=== PATIENT | male | born 1930 | race Caucasian/White ===

== ENCOUNTER 2017-08-01 15:35 | Inpatient (IN) ==
--- NOTE | 2017-08-01 15:44 | Emergency Department Note ---
Disposition Clinical Impression: Weakness, Acute kidney injury Transient cerebral ischemia Qualifiers: Transient cerebral ischemia type: unspecified Qualified Code(s): G45.9 - Transient cerebral ischemic attack, unspecified Altered mental status Qualifiers: Altered mental status type: transient alteration of awareness Qualified Code(s) : R40.4 - Transient alteration of awareness Hypertension Qualifiers: Hypertension type: unspecified Qualified Code(s): I10 - Essential (primary) hypertension Diabetes mellitus Qualifiers: Diabetes mellitus type: type 2 Diabetes mellitus complication status: with unspecified complications Diabetes mellitus care home insulin use: unspecified predatory animal exterminator insulin use status Qualified Code(s): E11.8 - Type 2 diabetes mellitus with unspecified complications Disposition: Admitted As Inpatient Condition: Undetermined Forms: ED Satisfaction Letter Time of Disposition: 16:33 Neuro HPI - General Chief Complaint: ED Neuro Symptoms/Deficit Stated Complaint: poss stroke Time Seen by Provider: 08/01/17 15:41 Source: patient, EMS Mode of arrival: EMS Limitations: altered mental status Nursing Notes Reviewed: Yes Vital Signs Reviewed: Yes - History of Present Illness HPI Narrative: 86-year-old male with apparent history of CVA arrives to [facility] emergency department with a last known well of roughly 1600 where he was at [facility] with family and everybody noted some slurring of his words, left-sided facial droop as well as some confusion. Apparently the patient went to the [facility] and he remained oriented to person only answer his words with left facial droop. The patient has no other symptoms associated with his complaints other than slurred words, left-sided facial droop, and mild aphasia. The patient denies any chest pain, difficulty breathing. He states that above his left eye feels a little numbness. Patient states he has never felt like this in the past. Records that were sent from the [facility] did not include medical history or medication history. The patient is a poor historian. Onset of Symptoms Date: 08/01/17 Onset of Symptoms Time: 16:00 Symptom Onset Unknown: No Timing confirmed by: family member Location: speech, left face, dysarthria History of same: No Severity: mild Symptoms Improving: Yes Improves with: time Worsens with: none Context: sudden onset On Anticoagulants: No Associated symptoms: Reports: confusion Treatments Prior to Arrival: none - Related Data Home Medications: Home Medications Medication Instructions Recorded Confirmed Albuterol Sulfate [Proair Hfa] 2 puff IH Q4H PRN 08/01/17 08/01/17 Budesonide/Formoterol 160/4.5 2 puff IH BIDR 08/01/17 08/01/17 [Symbicort 160/4.5] Calcium Carbonate/Vitamin D3 1 tab PO BID 08/01/17 08/01/17 [Calcium 250+D Tablet] Cholecalciferol (D-3) [Vitamin D] 1,000 unit PO DAILY 08/01/17 08/01/17 Clopidogrel [Plavix] 75 mg PO DAILY 08/01/17 08/01/17 Docusate Sodium [Dok] 100 mg PO BID 08/01/17 08/01/17 Furosemide [Lasix] 20 mg PO DAILY 08/01/17 08/01/17 Insulin ASPART [NovoLOG] 20 unit SQ BID 08/01/17 08/01/17 Insulin Glargine [Lantus] 68 unit SQ QPM 08/01/17 08/01/17 Isosorbide MONOnitrate (24 HR) 60 mg PO BID 08/01/17 08/01/17 [Imdur] Oxybutynin Chloride [Ditropan Xl] 10 mg PO HS 08/01/17 08/01/17 Simvastatin [Zocor] 80 mg PO QPM 08/01/17 08/01/17 Tiotropium [Spiriva] 1 puff IH DAILY 08/01/17 08/01/17 All systems ED: reviewed and negative except as stated. Constitutional: Denies: fever, chills, weakness ENT ED: Denies: congestion Cardiovascular: Denies: chest pain Respiratory: Denies: dyspnea Gastrointestinal: Denies: abdominal pain Genitourinary: Denies: urgency, dysuria Musculoskeletal: Denies: back pain, neck pain Integumentary: Denies: rash Neurological: Reports: headache, confusion. Denies: weakness, numbness, paresthesias Past Medical History - Past Medical History Attestation: Yes The following information was validated with the patient. Source: patient Medical history: Reports: coronary artery disease, CVA (according to records in 2005), diabetes, hyperlipidemia, hypertension Surgical history: Reports: non-contributory - Social History Smoking Status: Unknown if ever smoked Alcohol use: Reports: unknown Drug use: Reports: unknown Physical Exam - General Limitations: altered mental status General appearance: alert, in no apparent distress - Head Head exam: atraumatic, normocephalic, normal inspection - Eye Eye exam: Present: normal appearance, PERRL, EOMI - ENT ENT exam: normal exam, normal oropharynx, mucous membranes moist - Neck Neck exam: Present: normal inspection, full ROM, trachea midline - Chest Chest inspection: Present: normal inspection, symmetric chest wall rise - Respiratory Respiratory exam: Present: normal lung sounds bilaterally - Cardiovascular Cardiovascular exam: Present: regular rate, normal rhythm, normal heart sounds - Abdominal Exam Abdominal exam: Present: soft, Non-Tender. Absent: tenderness, distention, guarding, rebound, rigidity - Extremities Exam Extremities exam: Present: normal inspection, full ROM. Absent: tenderness, pedal edema - Neurological Exam Neurological exam: Present: alert - Expanded Neurological Exam Patient oriented to: Present: person Speech: Present: expressive aphasia Cranial nerves: EOM function (II, III, IV, ): Normal, facial sensation (V): Normal, facial palsy (VII): Abnormal Left Motor strength - LUE: 4/5 Motor strength - RUE: 4/5 Motor strength - LLE: 4/5 Motor strength - RLE: 4/5 Sensory exam upper extremity: light touch: Normal Sensory exam lower extremity: light touch: Normal Coma Scale Eye Opening: Spontaneous Coma Scale Motor Response: Obeys Commands Coma Scale Verbal Response: Confused Coma Scale Total: 14 Course - Consultations Consultation #1: We spoke to the [facility] neurologists, Dr. Coburn, who agreed that the patient did not meet tPA criteria. In addition it was noted the patient has an NIH of 1 for his dysarthria. The patient was recommended to be admitted for further workup and care. No further recommendations at this time. Time: 16:12 Vital Signs Temperature 98.7 F 08/01/17 15:37 Pulse Rate 69 08/01/17 15:37 Respiratory Rate 16 08/01/17 15:37 Blood Pressure 126/64 08/01/17 15:37 O2 Sat by Pulse Oximetry 94 08/01/17 15:37 Temperature 98.7 F 08/01/17 15:37 Pulse Rate 68 08/01/17 16:31 Respiratory Rate 20 08/01/17 16:31 Blood Pressure 154/75 08/01/17 16:31 O2 Sat by Pulse Oximetry 96 08/01/17 16:31 Oxygen Delivery Oxygen Delivery Nasal Cannula Neuro Symptoms/Deficit - MDM Narrative Medical decision making narrative: The patient will be admitted to the hospitalist with concern for TIA as the patient has had a improvement as his symptoms. [facility] neurology recommended MRI as well as carotid Dopplers and continue his aspirin and Plavix. Lab work is currently pending. No further recommendations at this time. Lab work demonstrates what appears to be a K I given the patient does not have past history of CTD listed on his information from the [facility]. Patient will be given IV fluids at this time. Urinalysis pending. We will admit the patient to the hospitalist for TIA versus CVA. Patient made aware and agrees to plan. No further recommendations. The patient took his aspirin and Plavix today so we will not repeat readminister. Accepted by Dr. Gerard. - Medical Records Medical records reviewed: Yes I reviewed the patient's medical records. - Lab Data Lab results reviewed: Yes I reviewed the patient's lab results. Result diagrams: 08/01/17 15:50 08/01/17 15:50 Lab Results 08/01/17 08/01/17 08/01/17 Range/Units 15:38 15:50 15:50 WBC 8.2 (4.3-11.1) K/mcL RBC 4.45 (4.19-5.50) M/mcL Hgb 13.4 (12.9-16.9) g/dL Hct 40.5 (37.5-50.1) % MCV 91.0 (83.0-100.0) fL MCH 30.1 (28.0-33.3) pg MCHC 33.1 (31.6-35.5) g/dL RDW 13.5 (11.5-14.5) % Plt Count 191 (140-400) K/mcL MPV 9.2 L (9.4-12.4) fL Immature Gran % 0.4 (0-4) % Seg Neutrophils % 61.7 % Lymphocytes % 22.7 % Monocytes % 9.4 % Eosinophils % 5.4 % Basophils % 0.4 % Neutrophils # 5.0 (1.6-8.9) K/mcL Lymphocytes # 1.9 (0.6-4.6) K/mcL Monocytes # 0.8 (0.0-1.3) K/mcL Eosinophils # 0.4 (0.0-0.6) K/mcL Basophils # 0.0 (0.0-0.2) K/mcL PT 11.3 (9.4-12.1) Seconds INR 1.1 APTT 28.8 (26.0-36.0) Seconds Sodium (136-145) mEq/L Potassium (3.5-4.5) mEq/L Chloride (98-109) mEq/L Carbon Dioxide (19-29) mEq/L BUN (8-26) mg/dL Creatinine (0.72-1.25) mg/dL Est GFR ( Amer) (> 60) Est GFR (Non-Af Amer) (> 60) BUN/Creatinine Ratio (6-26) Glucose (70-99) mg/dL POC Glucose 87 (58-89) Calculated Osmolality (280-300) Calcium (8.6-10.8) mg/dL Troponin I (0-0.03) ng/mL 08/01/17 08/01/17 Range/Units 15:50 15:50 WBC (4.3-11.1) K/mcL RBC (4.19-5.50) M/mcL Hgb (12.9-16.9) g/dL Hct (37.5-50.1) % MCV (83.0-100.0) fL MCH (28.0-33.3) pg MCHC (31.6-35.5) g/dL RDW (11.5-14.5) % Plt Count (140-400) K/mcL MPV (9.4-12.4) fL Immature Gran % (0-4) % Seg Neutrophils % % Lymphocytes % % Monocytes % % Eosinophils % % Basophils % % Neutrophils # (1.6-8.9) K/mcL Lymphocytes # (0.6-4.6) K/mcL Monocytes # (0.0-1.3) K/mcL Eosinophils # (0.0-0.6) K/mcL Basophils # (0.0-0.2) K/mcL PT (9.4-12.1) Seconds INR APTT (26.0-36.0) Seconds Sodium 142 (136-145) mEq/L Potassium 4.3 (3.5-4.5) mEq/L Chloride 106 (98-109) mEq/L Carbon Dioxide 28 (19-29) mEq/L BUN 24 (8-26) mg/dL Creatinine 2.34 H (0.72-1.25) mg/dL Est GFR ( Amer) 32 L (> 60) Est GFR (Non-Af Amer) 27 L (> 60) BUN/Creatinine Ratio 10 (6-26) Glucose 86 (70-99) mg/dL POC Glucose (58-89) Calculated Osmolality 297 (280-300) Calcium 8.9 (8.6-10.8) mg/dL Troponin I 0.01 (0-0.03) ng/mL - Radiology Data Radiology results reviewed: Yes I reviewed the patient's radiology results. - EKG Data EKG attestation: Yes I reviewed and interpreted this EKG. EKG results narrative: Heart rate 68 bpm. LA interval 164 ms. QTC 411 ms. Normal sinus rhythm. No ST elevation or ST depression. PVCs noted. NIH Stroke Scale - Level of Consciousness LOC: Alert - LOC Questions LOC Questions: Answers both correctly - LOC Commands LOC Commands: Performs both correctly - Best Gaze Best Gaze: Normal - Visual Visual: No visual loss - Facial Palsy Facial Palsy: Minor asymmetry on smiling, flattened nasolabial fold - Motor Arms Motor Arm-Left: No drift for 10 seconds Motor Arm-Right: No drift for 10 seconds - Motor Legs Motor Leg-Left: No drift for 5 seconds Motor Leg-Right: No drift for 5 seconds - Limb Ataxia Limb Ataxia: Normal, No Ataxia - Sensory Sensory: Normal - Best Language Best Language: Mild to moderate aphasia. Examiner can identify picture from response - Dysarthria Dysarthria: Mild, slurs some words - Extinction and Inattention Extinction and Inattention: Normal - NIHSS Total Score NIHSS Total Score: 3 Attestation Statement - Attestation Attestation: I examined this patient and my medical decision-making was reviewed with the Resident Physician, Dr. Batista. I agree with the documented findings, disposition and treatment plan as described except to the extent set forth below. Patient is an 86-year-old elderly white male who presents to the emergency by EMS today with concern for strokelike symptoms. Patient was eating at [facility] with his family. Approximately 2:00 this afternoon started to have difficulty swallowing slurred speech confusion and unable to articulate clear words with left-sided facial droop. Family took him to the [facility] urgent care who immediately transferred him to our facility with concern for acute CVA. Patient arrives awake alert and oriented 4 but hard of hearing, complaining of just a mild generalized headache but no other complaints at this time. Patient with slight droop to the corner of the mouth on the left but otherwise significantly improved mental status, now conversant and no deficits in the extremities noted. We did call a stroke alert on arrival based on facial droop symptoms and expedited CT imaging. Patient had an Accu-Chek prior to being taken to CT which was showed a blood sugar of 87. EKG that was sent by the [facility] was normal sinus without acute ischemia. Labs were ordered on the patient and we had to request patient records to get an updated list of his medical history as well as his medications. Patient currently on aspirin and Plavix. Head CT was negative for acute intracerebral hemorrhage or acute cortical infarct. Stroke team from [facility] was on telemetry cardiac on patient's return from CT, following their examination they agree with our initial assessment and that patient is not a candidate for TPA secondary to significant improvement in symptoms. Recommended admission for further evaluation and management of TIA. Case was discussed with the hospitalist who accepted patient for admission. Patient's neurologic status at this time continues to improve.
[2017-08-01 16:00] LABS: Basophils % 0.4 %; Eosinophils # 0.4 K/mcL (0.0-0.6); Eosinophils % 5.4 %; Hematocrit 40.5 % (37.5-50.1); Hemoglobin 13.4 g/dL (12.9-16.9); Immature Granulocytes % 0.4 % (0-4); Lymphocytes # 1.9 K/mcL (0.6-4.6); Lymphocytes % 22.7 %; Mean Corpuscular HGB Conc 33.1 g/dL (31.6-35.5); Mean Corpuscular Hemoglobin 30.1 pg (28.0-33.3); Mean Platelet Volume 9.2 fL (9.4-12.4); Monocytes # 0.8 K/mcL (0.0-1.3); Monocytes % 9.4 %; Platelet Count 191 K/mcL (140-400); Red Blood Count 4.45 M/mcL (4.19-5.50); Red Cell Distribution Width 13.5 % (11.5-14.5); Segmented Neutrophils % 61.7 %
[2017-08-01 16:07] LABS: INR 1.1; Prothrombin Time 11.3 Seconds (9.4-12.1)
[2017-08-01 16:09] LABS: Activated Partial Thrombo Time 28.8 Seconds (26.0-36.0)
[2017-08-01 16:13] LABS: Calcium 8.9 mg/dL (8.6-10.8)
[2017-08-01 16:18] LABS: Potassium 4.3 mEq/L (3.5-4.5)
[2017-08-01 16:50] LABS: Bilirubin,Urine Small (Negative); Blood,Urine Negative (Negative); Clarity,Urine Clear (Clear); Color,Urine Dark Yellow (Yellow); Glucose,Urine (UA) Normal (Normal); Ketones,Urine Negative (Negative); Leukocyte Esterase,Urine Negative (Negative); Nitrite,Urine Negative (Negative); PH,Urine 5.5 pH Units (5.0-8.0); Protein,Urine 30 mg/dL (Neg-Trace); Specific Gravity,Urine 1.029 (1.010-1.025); Urobilinogen,Urine Normal (Normal)
[2017-08-01 16:53] LABS: Bacteria,Urine None Seen per hpf (None-Few); Squamous Epithelial Cell,Urine Many per lpf (None-Few)
--- NOTE | 2017-08-01 16:58 | Internal Med History&Physical ---
Date of Encounter: 08/01/17 Time of Encounter: 16:54 Assessment and Plan (1) Morbid obesity Status: Chronic chronic (2) Hyperlipidemia Status: Chronic chronic Qualifiers: Hyperlipidemia type: pure hypercholesterolemia Qualified Code(s): E78.00 - Pure hypercholesterolemia, unspecified; E78.0 - Pure hypercholesterolemia (3) Acute kidney injury Status: Acute not sure if acute no prior labs here will monitor and consult nephrology if worsens (4) Altered mental status Status: Acute due to tia/cva improving already Qualifiers: Altered mental status type: transient alteration of awareness Qualified Code(s): R40.4 - Transient alteration of awareness (5) Diabetes mellitus Status: Chronic place on sliding scale and resume home meds Qualifiers: Diabetes mellitus type: type 2 Diabetes mellitus complication status: with unspecified complications Diabetes mellitus prison insulin use: unspecified exterminator insulin use status Qualified Code(s): E11.8 - Type 2 diabetes mellitus with unspecified complications (6) Hypertension Status: Chronic well controlled Qualifiers: Hypertension type: essential hypertension Qualified Code(s): I10 - Essential (primary) hypertension (7) Transient cerebral ischemia Status: Acute acute tia/cva with left sided weakness and facial drrop and some speeech aphasia Qualifiers: Transient cerebral ischemia type: unspecified Qualified Code(s): G45.9 - Transient cerebral ischemic attack, unspecified Internal Medicine - H&P: HPI Chief complaint: left sided weakness and facial drrop Admitted From: Intrahospital Transfer Plans for Post Hospital Care: Home History of present illness: Mr. Joseph is a 86 year old male Patient with history of prior CVA, diabetes, COPD with Prior lobectomy, hypertension, high cholesterol, CAD, patient was with the family at [facility] and family noted left facial droop and left-sided weakness and confusion and some sluured speech and drooling he was then taken to [facility] where he was oriented only to person the patient was then transferred here for further evaluation CT of the head here was unremarkable. Patient has improved denies any chest pain ,is short of breath from chronic shortness of breath patient also has some abnormality of the creatinine is 2.3 with no known baseline patient being admitted for TIA CVA evaluation Past Med Surg Social Fam HX - Past Medical History Medical history: coronary artery disease, CVA (according to records in 2005), diabetes, hyperlipidemia, hypertension Psychiatric history: anxiety - Past Surgical History Surgical History: non-contributory - Social History Smoking Status: Unknown if ever smoked Smokeless Tobacco Status: No Alcohol use: unknown Drug use: unknown Internal Medicine - H&P: Meds Albuterol Sulfate [Proair Hfa] 2 puff IH Q4H PRN 08/01/17 [History] Budesonide/Formoterol 160/4.5 [Symbicort 160/4.5] 2 puff IH BIDR 08/01/17 [ History] Calcium Carbonate/Vitamin D3 [Calcium 250+D Tablet] 1 tab PO BID 08/01/17 [ History] Cholecalciferol (D-3) [Vitamin D] 1,000 unit PO DAILY 08/01/17 [History] Clopidogrel [Plavix] 75 mg PO DAILY 08/01/17 [History] Docusate Sodium [Dok] 100 mg PO BID 08/01/17 [History] Furosemide [Lasix] 20 mg PO DAILY 08/01/17 [History] Insulin ASPART [NovoLOG] 20 unit SQ BID 08/01/17 [History] Insulin Glargine [Lantus] 68 unit SQ QPM 08/01/17 [History] Isosorbide MONOnitrate (24 HR) [Imdur] 60 mg PO BID 08/01/17 [History] Oxybutynin Chloride [Ditropan Xl] 10 mg PO HS 08/01/17 [History] Simvastatin [Zocor] 80 mg PO QPM 08/01/17 [History] Tiotropium [Spiriva] 1 puff IH DAILY 08/01/17 [History] 3 Allergy/AdvReac Type Severity Reaction Status Date / Time No Known Allergies Allergy Verified 08/01/17 16:47 All Systems PM: A 10-system review of systems was performed and is negative for pertinent findings except as documented above in the HPI. - Constitutional Constitutional: no chills, no fever(s), no night sweats - EENT Eyes: no change in vision, no discharge, no pain, no photophobia Ears: no ear discharge, no ear pain, no tinnitus Nose, mouth and throat: no dysphagia, no nasal discharge, no neck pain, no sore throat - Cardiovascular Cardiovascular ROS IM: dyspnea, dyspnea on exertion - Respiratory Respiratory: dyspnea, no excessive phlegm production - Gastrointestinal Gastrointestinal: no abdominal pain, no diarrhea, no hematemesis, no hematochezia, no melena, no nausea, no vomiting - Musculoskeletal Musculoskeletal ROS IM: no numbness, no tingling - Integumentary Integumentary IM: no rash, no unusual bruising - Neurological Neurological ROS: no confusion, no convulsions, no focal weakness, no numbness, no tingling, no tremor(s) - Constitutional Vitals: Temp Pulse Resp BP Pulse Ox 98.7 F 68 20 154/75 96 08/01/17 15:37 08/01/17 16:31 08/01/17 16:31 08/01/17 16:31 08/01/17 16:31 General appearance: Present: mild distress, morbidly obese - Eye Eye exam: Present: PERRL, conjuntiva pink, sclera anicteric Pupils: Present: PERRL - Respiratory Respiratory exam: Present: decreased breath sounds, rhonchi, wheezes - Cardiovascular Cardiovascular exam: Present: RRR, +S1, +S2, systolic murmur - GI/Abdominal GI/Abdominal exam: Present: normal bowel sounds, soft, no peritoneal signs. Absent: distended, tenderness - Extremities Exam Extremities exam: Present: pedal edema Internal Med - H&P Results - Labs CBC & Chem 7: 08/01/17 15:50 08/01/17 15:50 Labs: Short CBC 08/01/17 Range/Units 15:50 WBC 8.2 (4.3-11.1) K/mcL Hgb 13.4 (12.9-16.9) g/dL Hct 40.5 (37.5-50.1) % Plt Count 191 (140-400) K/mcL Neutrophils # 5.0 (1.6-8.9) K/mcL BMP 08/01/17 15:50 Sodium 142 Potassium 4.3 Chloride 106 Carbon Dioxide 28 BUN 24 Creatinine 2.34 H Glucose 86 Calcium 8.9 Cardiac Enzymes 08/01/17 Range/Units 15:50 Troponin I 0.01 (0-0.03) ng/mL - Impressions ITS Impressions Chest X-Ray 08/01/17 15:41 IMPRESSION: Suspected central pulmonary vascular congestion. Right pleural effusion with associated airspace disease, asymmetric edema versus pneumonia. Follow-up to resolution is recommended. D/ / Melanie Arguelles Cha, MD / Melanie Arguelles Cha, MD Interpreting Provider: Melanie Arguelles Cha, MD Head CT 08/01/17 15:41 IMPRESSION: No evidence of intracranial hemorrhage. No CT evidence of acute cortical infarct. 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 D/ / 08/01/2017 16:16:32 Homer Mcgovern MD / henry Interpreting Provider: Homer Mcgovern MD
[2017-08-01] MEDS ORDERED: Ondansetron 4 MG/2 ML VIAL IVP PRN (17:05)
[2017-08-01] MEDS ORDERED: Naloxone 0.4 MG/ML INJ IVP PRN (17:05)
[2017-08-01] MEDS ORDERED: Acetaminophen 325 MG TABLET PO PRN (17:05)
[2017-08-01] MEDS: 0.9 % Sodium Chloride 1,000 ML IVC SCH ×2 (17:05→22:55)
[2017-08-01 17:11] LABS: Hyaline Casts,Urine Many per lpf (None-Few)
[2017-08-01] MEDS ORDERED: Ipratropium/Albuterol Neb 3 ML IH PRN (17:13)
[2017-08-01] MEDS ORDERED: D5% in Water 1,000 ML IVC PRN (17:23)
[2017-08-01] MEDS ORDERED: Dextrose Gel 15 GM PO PRN ×2 (17:23)
[2017-08-01] MEDS ORDERED: *HR* Dextrose 50 % in Water (Syg) 50 ML SYRINGE IVP PRN (17:23)
[2017-08-01] MEDS: Insulin DETEMIR 100 UNIT/ML X5UNITS SQ SCH (19:52)
[2017-08-01] MEDS: Ipratropium/Albuterol Neb 3 ML IH SCH ×2 (19:58→23:50)
[2017-08-01] MEDS: Insulin LISPRO 300 UNITS/3 ML VIAL SQ SCH (21:16)
[2017-08-01] MEDS: Isosorbide MONOnitrate (24 HR) 60 MG TAB.ER.24H PO SCH (22:12)
[2017-08-02] MEDS: Ipratropium/Albuterol Neb 3 ML IH SCH ×6 (03:30→23:56)
[2017-08-02] MEDS: 0.9 % Sodium Chloride 1,000 ML IVC SCH (06:50)
[2017-08-02 08:18] LABS: Basophils % 0.4 %; Eosinophils # 0.3 K/mcL (0.0-0.6); Eosinophils % 4.4 %; Hemoglobin 12.5 g/dL (12.9-16.9); Immature Granulocytes % 0.3 % (0-4); Lymphocytes # 1.6 K/mcL (0.6-4.6); Lymphocytes % 22.3 %; Mean Corpuscular HGB Conc 32.9 g/dL (31.6-35.5); Mean Corpuscular Hemoglobin 30.3 pg (28.0-33.3); Mean Platelet Volume 9.4 fL (9.4-12.4); Monocytes # 0.7 K/mcL (0.0-1.3); Monocytes % 8.9 %; Neutrophils # 4.7 K/mcL (1.6-8.9); Platelet Count 153 K/mcL (140-400); Red Blood Count 4.13 M/mcL (4.19-5.50); Red Cell Distribution Width 13.4 % (11.5-14.5); Segmented Neutrophils % 63.7 %
[2017-08-02 08:33] LABS: Albumin/Globulin Ratio 0.9 (1.1-2.2); Bilirubin,Total 0.6 mg/dL (0.2-1.2); Calcium 8.4 mg/dL (8.6-10.8); Chol/HDL Ratio 4.7 (0-4.9); Globulin 3.2 g/dL (2.4-3.5); Potassium 3.9 mEq/L (3.5-4.5); Total Protein 6.2 g/dL (6.0-8.3)
[2017-08-02] MEDS: Insulin LISPRO 300 UNITS/3 ML VIAL SQ SCH ×4 (09:26→22:03)
[2017-08-02] MEDS: Cholecalciferol (D-3) 1,000 UNIT TABLET PO SCH (09:50)
[2017-08-02] MEDS: Isosorbide MONOnitrate (24 HR) 60 MG TAB.ER.24H PO SCH ×2 (09:50→17:13)
[2017-08-02] MEDS: Aspirin 325 MG TABLET PO SCH (09:50)
--- NOTE | 2017-08-02 12:16 | Internal Med Progress Note ---
Date of Encounter: 08/02/17 Time of Encounter: 11:50 - Assessment and plan (1) TIA (transient ischemic attack) Current Visit: Yes Status: Acute Assessment and plan: Resolution of presenting symptoms Head/Brain MRI reported: No acute infarct but an incidental microaneursyms of both distal ICAs awaiting carotid dopplers and 2D echo PT/OT neurology evaluation requested continue Aspirin and Statin therapy Qualifiers: Transient cerebral ischemia type: unspecified Qualified Code(s): G45.9 - Transient cerebral ischemic attack, unspecified (2) Diabetes mellitus Current Visit: Yes Status: Chronic Assessment and plan: continue home dose of insulin sliding scale insulin algorithm monitor FS and BG ADA diet Qualifiers: Diabetes mellitus type: type 2 Diabetes mellitus complication status: with unspecified complications Diabetes mellitus mcfp insulin use: with termite technician use Qualified Code(s): E11.8 - Type 2 diabetes mellitus with unspecified complications; Z79.4 - intermediate project manager (current) use of insulin; Z79.4 - jail ( current) use of insulin; Z79.4 - intermediate project manager (current) use of insulin; Z79.4 - jail (current) use of insulin (3) Hypertension Current Visit: Yes Status: Chronic Assessment and plan: BP within acceptable range continue home meds Qualifiers: Hypertension type: essential hypertension Qualified Code(s): I10 - Essential (primary) hypertension (4) DVT prophylaxis Current Visit: Yes Status: Acute Assessment and plan: Heparin SQ (5) JAMARCUS (acute kidney injury) Current Visit: Yes Status: Acute Assessment and plan: unclear of patient's baseline renal function (JAMARCUS and CKD) renal function improved from previous day noted to be on Lasix at home, will hold lasix dose at this time d/c IV fluids as concern for volume overload will continue to closely monitor renal function (6) Morbid obesity Current Visit: No Status: Chronic (7) Hyperlipidemia Current Visit: No Status: Chronic Assessment and plan: continue statin therapy Qualifiers: Hyperlipidemia type: pure hypercholesterolemia Qualified Code(s): E78.00 - Pure hypercholesterolemia, unspecified; E78.0 - Pure hypercholesterolemia - Subjective Interval history: Patient seen and examined at bedside. Resting in bed, and denies any discomfort. No speech deficits or facial droop noted. Pt reports of generalized weakness with difficulty with ambulation. awaiting 2D echo, carotid dopplers neurology consultation requested PT/OT evaluation - Constitutional Vitals: Temp Pulse Resp BP Pulse Ox 98.0 F 56 16 136/65 92 08/02/17 08:05 08/02/17 08:05 08/02/17 08:05 08/02/17 08:05 08/02/17 08:05 General appearance: Present: cooperative, morbidly obese, no acute distress, answers questions appropriately - Head Head exam: Present: atraumatic, normocephalic - Eye Eye exam: Present: conjuntiva pink, sclera anicteric - Respiratory Respiratory exam: Present: CTAB. Absent: respiratory distress, wheezes - Cardiovascular Cardiovascular exam: Present: RRR, +S1, +S2 - GI/Abdominal GI/Abdominal exam: Present: normal bowel sounds, soft, no peritoneal signs. Absent: distended, tenderness - Extremities Exam Extremities exam: Present: warm, radial pulses palpable and symmetrical. Absent : calf tenderness - Neurological Exam Neurological exam: Present: alert, oriented X3, strengths equal and symetr throughout. Absent: facial droop, speech deficit - Psychiatric Psychiatric exam: Present: normal affect, normal mood Internal Medicine: Result - Labs CBC & Chem 7: 08/02/17 07:49 08/02/17 07:49 Labs: Short CBC 08/02/17 Range/Units 07:49 WBC 7.3 (4.3-11.1) K/mcL Hgb 12.5 L (12.9-16.9) g/dL Hct 38.0 (37.5-50.1) % Plt Count 153 (140-400) K/mcL Neutrophils # 4.7 (1.6-8.9) K/mcL BMP 08/02/17 07:49 Sodium 141 Potassium 3.9 Chloride 107 Carbon Dioxide 25 BUN 22 Creatinine 1.86 H Glucose 61 L Calcium 8.4 L Cardiac Enzymes 08/01/17 08/02/17 Range/Units 22:41 07:49 Troponin I 0.02 0.03 (0-0.03) ng/mL Liver Function 08/02/17 Range/Units 07:49 Total Bilirubin 0.6 (0.2-1.2) mg/dL AST 17 (5-34) Units/L ALT 15 (0-55) Units/L Alkaline Phosphatase 71 (38-126) Units/L Albumin 3.0 L (3.5-5.0) g/dL - ABG Interpretation ABG results: PT/INR, D-dimer PT 11.3 Seconds (9.4-12.1) 08/01/17 15:50 Consult Discharge Plan - Plan [facility] Care Provider[facility] -
--- NOTE | 2017-08-02 13:38 | Neurology - Consult Note ---
Date of Encounter: 08/02/17 Time of Encounter: 13:34 Assessment and Plan (1) TIA (transient ischemic attack) Current Visit: Yes Status: Acute Likely dealing with a straightforward TIA here. He has multiple risk factors including his age, hyperlipidemia, hypertension, diabetes mellitus, morbid obesity to name a few. His blood pressure has been a fairly high several times during the admission. He was not a candidate for TPA as he rapidly resolved after admission. I agree with simply maintaining him on his clopidogrel and aspirin 81 mg daily. 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 Given his age and other comorbidities, life expectancy I would not recommend pursuing them, or considering any type of neuro interventional therapy. Carotid Doppler study revealed nonstenotic plaquing. Echocardiogram is pending. If a cardioembolic source is identified I would recommend anticoagulation. Otherwise I would maintain his antiplatelet regimen. You may discharge him at your discretion. Qualifiers: Transient cerebral ischemia type: unspecified Qualified Code(s): G45.9 - Transient cerebral ischemic attack, unspecified History of Present Illness HPI: Mr. Joseph is a 86 year old male with a prior history of diabetes mellitus, previous cerebrovascular events, hypertension, hyperlipidemia, morbid obesity, profound hearing loss and dementia who is seen for neurological evaluation secondary to suspected TIA. Patient was apparently having a meal at [facility] with family members when he suddenly experienced left facial droop and weakness of the left upper extremity intrinsic confusion. Apparently he was dropping from a rollover himself. He was brought to [facility] for further assessment. He was assessed by the [facility] stroke team, who felt that TPA was not necessary with an NIH of 1 and rapid improvement. TPA was therefore held. CT scan of the brain was negative, MRI scan of the brain does reveal significant cortical atrophy with chronic deep white matter ischemic changes. There was no acute diffusion deficit. Carotid Doppler study completed reveals nonstenotic plaquing. 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 Neither of these abnormalities are playing a role in the reason for his admission. He denies any history of headaches. He is currently sitting up at bedside eating his meal without difficulty. Past Med Surg Social Fam HX - Past Medical History Medical history: coronary artery disease, CVA, diabetes, hyperlipidemia, hypertension Psychiatric history: anxiety - Past Surgical History Surgical History: non-contributory - Social History Smoking Status: Light tobacco smoker Smokeless Tobacco Status: No Alcohol use: none, unknown Drug use: none, unknown Medications and Allergies Albuterol Sulfate [Proair Hfa] 2 puff IH Q4H PRN 08/01/17 [History] Budesonide/Formoterol 160/4.5 [Symbicort 160/4.5] 2 puff IH BIDR 08/01/17 [ History] Calcium Carbonate/Vitamin D3 [Calcium 250+D Tablet] 1 tab PO BID 08/01/17 [ History] Cholecalciferol (D-3) [Vitamin D] 1,000 unit PO DAILY 08/01/17 [History] Clopidogrel [Plavix] 75 mg PO DAILY 08/01/17 [History] Docusate Sodium [Dok] 100 mg PO BID 08/01/17 [History] Furosemide [Lasix] 20 mg PO DAILY 08/01/17 [History] Insulin ASPART [NovoLOG] 20 unit SQ BID 08/01/17 [History] Insulin Glargine [Lantus] 68 unit SQ QPM 08/01/17 [History] Isosorbide MONOnitrate (24 HR) [Imdur] 60 mg PO BID 08/01/17 [History] Oxybutynin Chloride [Ditropan Xl] 10 mg PO HS 08/01/17 [History] Simvastatin [Zocor] 80 mg PO QPM 08/01/17 [History] Tiotropium [Spiriva] 1 puff IH DAILY 08/01/17 [History] 3 Allergy/AdvReac Type Severity Reaction Status Date / Time No Known Allergies Allergy Verified 08/01/17 16:47 All Systems: A 10-system review of systems was performed and is negative for pertinent findings except as documented above in the HPI. Review of Systems: 10 point review of systems is consistent with a history of present illness and otherwise negative. Physical Examination - Vital Signs Vital Signs: Initial Vital Signs Temp Pulse Resp BP Pulse Ox 98.7 F 69 16 126/64 94 08/01/17 15:37 08/01/17 15:37 08/01/17 15:37 08/01/17 15:37 08/01/17 15:37 - Exam Exam: Neurologic examination finds a following; Cerebral functions-he is awake, and alert. Sitting up at the bedside eating his lunch. He handles utensils without difficulty. Obtaining a history is difficult because he has profound hearing loss as well as dementia. He is able to follow some simple commands and answer simple questions. He denies any pain or headache at this time. He appears to be back to his normal baseline. Cranial nerves- pupils are equal and reactive to light and accommodation, extraocular motility is intact. Sensory to face is intact. Mastication is intact. There is no facial asymmetry identified. Speech is not dysarthric. There is profound hearing loss bilaterally. Tongue protrudes midline. Motor- he has good strength bulk and tone of all 4 extremities. No involuntary movements or atrophy are present. Sensory examination was really difficult due to his profound hearing loss. Deep tendon reflexes are diminished throughout. No long tract signs present. Results - Laboratory Findings CBC and BMP: 08/02/17 07:49 08/02/17 07:49 Abnormal lab findings: Abnormal lab results RBC 4.13 M/mcL (4.19-5.50) L 08/02/17 07:49 Hgb 12.5 g/dL (12.9-16.9) L 08/02/17 07:49 Creatinine 1.86 mg/dL (0.72-1.25) H 08/02/17 07:49 Est GFR ( Amer) 42 (> 60) L 08/02/17 07:49 Est GFR (Non-Af Amer) 35 (> 60) L 08/02/17 07:49 Glucose 61 mg/dL (70-99) L 08/02/17 07:49 Calcium 8.4 mg/dL (8.6-10.8) L 08/02/17 07:49 Albumin 3.0 g/dL (3.5-5.0) L 08/02/17 07:49 Albumin/Globulin Ratio 0.9 (1.1-2.2) L 08/02/17 07:49 HDL Cholesterol 23 mg/dL (40-59) L 08/02/17 07:49 Ur Specific [place] 1.029 (1.010-1.025) H 08/01/17 16:30 Urine Protein 30 mg/dL (Neg-Trace) H 08/01/17 16:30 Urine Bilirubin Small (Negative) H 08/01/17 16:30 Urine Microscopic RBC 3-5 per hpf (0-3) H 08/01/17 16:30 Urine Microscopic WBC 3-5 per hpf (0-3) H 08/01/17 16:30 Ur Squamous Epith Cells Many per lpf (None-Few) H 08/01/17 16:30 Hyaline Casts Many per lpf (None-Few) H 08/01/17 16:30 Consult Discharge Plan - Plan [facility]errals: [facility] [Primary Care Provider] -
[2017-08-02] MEDS: *HR* Heparin 5,000 UNIT/ML VIAL SQ SCH (17:13)
[2017-08-02] MEDS: Budesonide/Formoterol 160/4.5 MDI IH SCH (20:08)
[2017-08-02] MEDS: Insulin DETEMIR 100 UNIT/ML X5UNITS SQ SCH (22:08)
[2017-08-03 03:42] LABS: Basophils % 0.6 %; Eosinophils # 0.5 K/mcL (0.0-0.6); Eosinophils % 7.8 %; Hematocrit 37.1 % (37.5-50.1); Hemoglobin 12.3 g/dL (12.9-16.9); Immature Granulocytes % 0.3 % (0-4); Lymphocytes # 1.5 K/mcL (0.6-4.6); Lymphocytes % 23.9 %; Mean Corpuscular HGB Conc 33.2 g/dL (31.6-35.5); Mean Corpuscular Hemoglobin 30.5 pg (28.0-33.3); Mean Corpuscular Volume 92.1 fL (83.0-100.0); Mean Platelet Volume 9.6 fL (9.4-12.4); Monocytes # 0.6 K/mcL (0.0-1.3); Monocytes % 9.1 %; Neutrophils # 3.8 K/mcL (1.6-8.9); Platelet Count 143 K/mcL (140-400); Red Blood Count 4.03 M/mcL (4.19-5.50); Red Cell Distribution Width 13.3 % (11.5-14.5); Segmented Neutrophils % 58.3 %
[2017-08-03 03:53] LABS: Calcium 8.7 mg/dL (8.6-10.8); Magnesium 1.8 mg/dL (1.6-2.6); Phosphorous 3.1 mg/dL (2.3-4.7); Potassium 4.5 mEq/L (3.5-4.5)
[2017-08-03] MEDS: Ipratropium/Albuterol Neb 3 ML IH SCH ×6 (04:26→23:19)
[2017-08-03] MEDS: *HR* Heparin 5,000 UNIT/ML VIAL SQ SCH ×2 (05:38→17:42)
[2017-08-03] MEDS: Budesonide/Formoterol 160/4.5 MDI IH SCH ×2 (07:52→19:37)
[2017-08-03] MEDS: Insulin LISPRO 300 UNITS/3 ML VIAL SQ SCH ×4 (07:56→20:26)
[2017-08-03] MEDS ORDERED: Tiotropium 18 MCG inhalation IH SCH (09:00)
[2017-08-03] MEDS ORDERED: Furosemide 20 MG TABLET PO SCH (09:00)
[2017-08-03] MEDS: Aspirin 325 MG TABLET PO SCH (09:46)
[2017-08-03] MEDS: Cholecalciferol (D-3) 1,000 UNIT TABLET PO SCH (09:47)
[2017-08-03] MEDS: Isosorbide MONOnitrate (24 HR) 60 MG TAB.ER.24H PO SCH (09:47)
[2017-08-03] MEDS: amLODIPine 5 MG TABLET PO SCH (09:47)
--- NOTE | 2017-08-03 14:34 | Internal Med Progress Note ---
Date of Encounter: 08/03/17 Time of Encounter: 13:30 - Assessment and plan (1) TIA (transient ischemic attack) Current Visit: Yes Status: Acute Assessment and plan: Resolution of presenting symptoms Head/Brain MRI reported: No acute infarct but an incidental microaneursyms of both distal ICAs Neurology evaluation appreciated 2D echo reported: LVEF 55-60%. Normal LV chamber size and function. Mild concentric left ventricular hypertrophy. Mild left ventricular diastolic dysfunction. Grossly normal right ventricular structure and function. Unable to estimate RVSP due to lack of TR jet. No obvious significant valvular dysfunction. Suboptimal image quality, but no obvious intracardiac shunting with agitated saline contrast. continue Aspirin and Statin therapy d/c pending ECF placement Qualifiers: Transient cerebral ischemia type: unspecified Qualified Code(s): G45.9 - Transient cerebral ischemic attack, unspecified (2) Diabetes mellitus Current Visit: Yes Status: Chronic Assessment and plan: continue home dose of insulin sliding scale insulin algorithm monitor FS and BG ADA diet Qualifiers: Diabetes mellitus type: type 2 Diabetes mellitus complication status: with unspecified complications Diabetes mellitus buttermaker helper insulin use: with care home use Qualified Code(s): E11.8 - Type 2 diabetes mellitus with unspecified complications; Z79.4 - intermodal dispatcher (current) use of insulin; Z79.4 - custodial ( current) use of insulin; Z79.4 - custodial (current) use of insulin; Z79.4 - intermodal dispatcher (current) use of insulin (3) Hypertension Current Visit: Yes Status: Chronic Assessment and plan: noted to be hypertensive this morning added Amlodipine 5mg PO qd and Hydralazine 10mg IV q6h prn SBP>160 continue home meds will closely monitor BP Qualifiers: Hypertension type: essential hypertension Qualified Code(s): I10 - Essential (primary) hypertension (4) DVT prophylaxis Current Visit: Yes Status: Acute Assessment and plan: Heparin SQ (5) JAMARCUS (acute kidney injury) Current Visit: Yes Status: Resolved Assessment and plan: unclear of patient's baseline renal function (JAMARCUS and CKD) renal function improved from previous day and has plateaued this may be patient's baseline renal function will restart home dose of lasix given pedal edema will continue to closely monitor renal function (6) Morbid obesity Current Visit: No Status: Chronic (7) Hyperlipidemia Current Visit: No Status: Chronic Assessment and plan: continue statin therapy Qualifiers: Hyperlipidemia type: pure hypercholesterolemia Qualified Code(s): E78.00 - Pure hypercholesterolemia, unspecified; E78.0 - Pure hypercholesterolemia - Subjective Interval history: Patient seen and examined with daughter present at bedside. No speech deficits or facial droop. physical therapy recommended ECF director social service consulted for placement d/c pending placement - Constitutional Vitals: Temp Pulse Resp BP Pulse Ox 98.4 F 82 20 158/70 99 08/03/17 11:40 08/03/17 11:40 08/03/17 11:40 08/03/17 11:40 08/03/17 11:40 General appearance: Present: cooperative, A&O X 3 (hard of hearing), morbidly obese, no acute distress, answers questions appropriately - Head Head exam: Present: atraumatic, normocephalic - Respiratory Respiratory exam: Absent: respiratory distress, wheezes - Cardiovascular Cardiovascular exam: Present: RRR, +S1, +S2. Absent: diastolic murmur, gallop, rubs, systolic murmur - GI/Abdominal GI/Abdominal exam: Present: normal bowel sounds, soft, no peritoneal signs. Absent: distended, tenderness - Extremities Exam Extremities exam: Present: pedal edema, warm, radial pulses palpable and symmetrical. Absent: calf tenderness - Neurological Exam Neurological exam: Present: alert, oriented X3 Internal Medicine: Result - Labs CBC & Chem 7: 08/03/17 03:20 08/03/17 03:20 Labs: Short CBC 08/03/17 Range/Units 03:20 WBC 6.5 (4.3-11.1) K/mcL Hgb 12.3 L (12.9-16.9) g/dL Hct 37.1 L (37.5-50.1) % Plt Count 143 (140-400) K/mcL Neutrophils # 3.8 (1.6-8.9) K/mcL BMP 08/03/17 03:20 Sodium 138 Potassium 4.5 Chloride 105 Carbon Dioxide 25 BUN 24 Creatinine 1.89 H Glucose 190 H Calcium 8.7 - ABG Interpretation ABG results: PT/INR, D-dimer PT 11.3 Seconds (9.4-12.1) 08/01/17 15:50 - Impressions Impressions Echocardiogram 08/02/17 17:14 Impressions: Technically sub-optimal due to poor echocardiographic windows. LVEF 55-60%. Normal LV chamber size and function. Mild concentric left ventricular hypertrophy. Mild left ventricular diastolic dysfunction. Grossly normal right ventricular structure and function. Unable to estimate RVSP due to lack of TR jet. No obvious significant valvular dysfunction. Suboptimal image quality, but no obvious intracardiac shunting with agitated saline contrast. Left Ventricular Wall Motion: Rest Echo Findings All wall segments showed normal motion. Findings: Study Quality * Technically sub-optimal due to poor echocardiographic windows. ECG Findings * Sinus rhythm with BBB. Left Ventricle * LVEF 55-60%. * Normal LV chamber size and function. * Mild concentric left ventricular hypertrophy. * Mild left ventricular diastolic dysfunction. Right Ventricle * Grossly normal right ventricular structure and function. Left Atrium * Mildly dilated left atrium. Right Atrium * Right atrium is not well visualized. Interatrial Septum * Suboptimal image quality, but no obvious intracardiac shunting with agitated saline contrast. Aortic Valve * Aortic valve not well visualized. * No aortic regurgitation. * No aortic stenosis. Mitral Valve * Mild mitral annular calcification * No mitral stenosis. * No mitral regurgitation. Tricuspid Valve * Normal tricuspid valve structure and function. * No tricuspid regurgitation. * Unable to estimate RVSP due to lack of TR jet. Pulmonic Valve * Pulmonic valve not well visualized. Aorta * Normally sized aortic root. Pericardium * The pericardium appears normal. Consult Discharge Plan - Plan [facility]errals: [facility] [Primary Care Provider] -
[2017-08-03] MEDS: Furosemide 20 MG TABLET PO SCH (14:47)
--- NOTE | 2017-08-03 16:40 | Neurology Progress Note ---
Date of Encounter: 08/03/17 Time of Encounter: 16:37 Assessment and Plan (1) TIA (transient ischemic attack) Current Visit: Yes Status: Acute I believe that this gentleman has experienced symptoms of transient ischemia initially. However he continues to have significant elevations in his blood pressure. Certainly this may place him at risk for future events. I also believe that the current episodes of waxing and mental status change likely due to a combination of his dementia with sundowning effect. However, recommending a precursory to rule out UTI or other common causes of confusion during hospitalization. Recommendations remain consistent with my assessment from yesterday. We will reevaluate at your request. Qualifiers: Transient cerebral ischemia type: unspecified Qualified Code(s): G45.9 - Transient cerebral ischemic attack, unspecified Subjective Interval history: The chart was reviewed, the patient was seen and examined. Spouse present in the room. She reports that he has been having waxing and waning episodes of confusion during the day. I believe this is more than likely secondary to sundowning effect. He has also had drastic elevations in his blood pressure systolic of 199 today. Perhaps some hypertensive encephalopathy developing. No focal lateralized deficits are present however. Denies headaches. Echocardiogram has been completed and does not reveal evidence of a cardioembolic source. Objective - Constitutional Vitals: Temp Pulse Resp BP Pulse Ox 97.9 F 71 18 143/57 91 08/03/17 14:39 08/03/17 14:39 08/03/17 15:42 08/03/17 15:56 08/03/17 15:42 - Neurological Exam Motor Examination: Present: grossly full strength in all extremities Cranial nerve examination: Present: PERRL, EOMI, corneal reflexes brisk symmetrically, no facial asymmetry is present Additional comments: Mental status remains confused. He was awake and alert however thinks he is at another facility amongst friends. Certainly the profound hearing loss is not helping matters. He is able to follow some simple commands. He is not agitated at this time. Results - Laboratory Findings CBC and BMP: 08/03/17 03:20 08/03/17 03:20 Abnormal lab findings: Abnormal lab results RBC 4.03 M/mcL (4.19-5.50) L 08/03/17 03:20 Hgb 12.3 g/dL (12.9-16.9) L 08/03/17 03:20 Hct 37.1 % (37.5-50.1) L 08/03/17 03:20 Creatinine 1.89 mg/dL (0.72-1.25) H 08/03/17 03:20 Est GFR ( Amer) 41 (> 60) L 08/03/17 03:20 Est GFR (Non-Af Amer) 34 (> 60) L 08/03/17 03:20 Glucose 190 mg/dL (70-99) H 08/03/17 03:20 POC Glucose 185 (58-89) H 08/03/17 11:37 Albumin 3.0 g/dL (3.5-5.0) L 08/02/17 07:49 Albumin/Globulin Ratio 0.9 (1.1-2.2) L 08/02/17 07:49 HDL Cholesterol 23 mg/dL (40-59) L 08/02/17 07:49 Ur Specific [place] 1.029 (1.010-1.025) H 08/01/17 16:30 Urine Protein 30 mg/dL (Neg-Trace) H 08/01/17 16:30 Urine Bilirubin Small (Negative) H 08/01/17 16:30 Urine Microscopic RBC 3-5 per hpf (0-3) H 08/01/17 16:30 Urine Microscopic WBC 3-5 per hpf (0-3) H 08/01/17 16:30 Ur Squamous Epith Cells Many per lpf (None-Few) H 08/01/17 16:30 Hyaline Casts Many per lpf (None-Few) H 08/01/17 16:30 Consult Discharge Plan - Plan [facility]errals: [facility] [Primary Care Provider] -
[2017-08-03] MEDS: Insulin DETEMIR 100 UNIT/ML X5UNITS SQ SCH (17:41)
[2017-08-04] MEDS: Ipratropium/Albuterol Neb 3 ML IH SCH ×2 (04:09→07:31)
[2017-08-04 04:45] LABS: Basophils # 0.1 K/mcL (0.0-0.2); Basophils % 0.4 %; Eosinophils # 0.2 K/mcL (0.0-0.6); Eosinophils % 1.7 %; Hematocrit 40.5 % (37.5-50.1); Hemoglobin 13.6 g/dL (12.9-16.9); Immature Granulocytes % 0.5 % (0-4); Lymphocytes # 1.8 K/mcL (0.6-4.6); Lymphocytes % 13.6 %; Mean Corpuscular HGB Conc 33.6 g/dL (31.6-35.5); Mean Corpuscular Volume 89.4 fL (83.0-100.0); Mean Platelet Volume 9.9 fL (9.4-12.4); Monocytes # 0.9 K/mcL (0.0-1.3); Platelet Count 177 K/mcL (140-400); Red Blood Count 4.53 M/mcL (4.19-5.50); Red Cell Distribution Width 13.4 % (11.5-14.5); Segmented Neutrophils % 76.8 %
[2017-08-04 04:51] LABS: Neutrophils # 10.1 K/mcL (1.6-8.9)
[2017-08-04 04:55] LABS: Calcium 9.4 mg/dL (8.6-10.8); Phosphorous 3.1 mg/dL (2.3-4.7)
[2017-08-04 04:59] LABS: Potassium 5.1 mEq/L (3.5-4.5)
[2017-08-04 05:14] LABS: Magnesium 2.3 mg/dL (1.6-2.6)
[2017-08-04] MEDS: *HR* Heparin 5,000 UNIT/ML VIAL SQ SCH (05:51)
[2017-08-04] MEDS: Furosemide 20 MG TABLET PO SCH (08:04)
[2017-08-04] MEDS: Aspirin 325 MG TABLET PO SCH (08:04)
[2017-08-04] MEDS: Cholecalciferol (D-3) 1,000 UNIT TABLET PO SCH (08:04)
[2017-08-04] MEDS: amLODIPine 5 MG TABLET PO SCH (08:04)
[2017-08-04] MEDS: Insulin LISPRO 300 UNITS/3 ML VIAL SQ SCH (08:04)
[2017-08-04] MEDS ORDERED: amLODIPine 5 MG TABLET PO SCH (08:18)
[2017-08-04] MEDS ORDERED: Isosorbide MONOnitrate (24 HR) 60 MG TAB.ER.24H PO SCH (09:00)
[2017-08-04 09:18] VITALS: BP 127/58
--- NOTE | 2017-08-04 09:31 | Discharge Summary ---
Date of Encounter: 08/04/17 Time of Encounter: 09:15 - Discharge Diagnosis (1) TIA (transient ischemic attack) Priority: Primary Status: Acute Qualifiers: Transient cerebral ischemia type: unspecified Qualified Code(s): G45.9 - Transient cerebral ischemic attack, unspecified (2) Diabetes mellitus Priority: Secondary Status: Chronic Qualifiers: Diabetes mellitus type: type 2 Diabetes mellitus complication status: with unspecified complications Diabetes mellitus ad terminal makeup operator insulin use: with ad terminal makeup operator use Qualified Code(s): E11.8 - Type 2 diabetes mellitus with unspecified complications; Z79.4 - penitentiary (current) use of insulin; Z79.4 - termite exterminator helper ( current) use of insulin; Z79.4 - penitentiary (current) use of insulin; Z79.4 - penitentiary (current) use of insulin (3) Hypertension Priority: Secondary Status: Chronic Qualifiers: Hypertension type: essential hypertension Qualified Code(s): I10 - Essential (primary) hypertension (4) DVT prophylaxis Priority: Secondary Status: Acute (5) JAMARCUS (acute kidney injury) Priority: Secondary Status: Resolved (6) Morbid obesity Priority: Secondary Status: Chronic (7) Hyperlipidemia Priority: Secondary Status: Chronic Qualifiers: Hyperlipidemia type: pure hypercholesterolemia Qualified Code(s): E78.00 - Pure hypercholesterolemia, unspecified; E78.0 - Pure hypercholesterolemia - Discharge Medications Prescriptions: amLODIPine [Norvasc] 10 mg PO DAILY #30 tablet Home Medications: Albuterol Sulfate [Proair Hfa] 2 puff IH Q4H PRN 08/01/17 [History] Budesonide/Formoterol 160/4.5 [Symbicort 160/4.5] 2 puff IH BIDR 08/01/17 [ History] Calcium Carbonate/Vitamin D3 [Calcium 250+D Tablet] 1 tab PO BID 08/01/17 [ History] Cholecalciferol (D-3) [Vitamin D] 1,000 unit PO DAILY 08/01/17 [History] Clopidogrel [Plavix] 75 mg PO DAILY 08/01/17 [History] Docusate Sodium [Dok] 100 mg PO BID 08/01/17 [History] Furosemide [Lasix] 20 mg PO DAILY 08/01/17 [History] Insulin ASPART [NovoLOG] 20 unit SQ BID 08/01/17 [History] Insulin Glargine [Lantus] 68 unit SQ QPM 08/01/17 [History] Isosorbide MONOnitrate (24 HR) [Imdur] 60 mg PO BID 08/01/17 [History] Oxybutynin Chloride [Ditropan Xl] 10 mg PO HS 08/01/17 [History] Simvastatin [Zocor] 80 mg PO QPM 08/01/17 [History] Tiotropium [Spiriva] 1 puff IH DAILY 08/01/17 [History] Aspirin 81 mg PO DAILY tablet 08/04/17 [Rx] Ipratropium/Albuterol Neb [Duoneb] 3 ml IH [id number] PRN inhsol 08/04/17 [Rx] amLODIPine [Norvasc] 10 mg PO DAILY #30 tablet 08/04/17 [Rx] Allergies/Adverse Reactions: 3 Allergy/AdvReac Type Severity Reaction Status Date / Time No Known Allergies Allergy Verified 08/01/17 16:47 Procedures/tests Complete & Pending: Procedures Performed prior 72 hours Category Date Time Status EV carotid duplex imaging BI Stat Y 08/02/17 09:34 Completed Date of admission: 08/01/17 17:33 [facility] care physician: [facility] Consults: 08/02/17 09:32 Consult to Neurology [CONS] Routine Consulting Provider: Neurology [facility] Reason for Consult: TIA Call Completed: Yes 08/02/17 11:57 Consult to Occupational Therapy [CONS] Routine Comment: Evaluate, develop and implement POC Reason for Consult: Evaluate, develop and implement POC Consult to Physical Therapy [CONS] Routine Comment: Evaluate, develop and implement POC Reason for Consult: Evaluate, develop and implement POC 08/03/17 11:08 Consult to Test Borer [CONS] Routine Reason for SW Consult: Patient may need inpatient rehab and having social issues with money and his son. Discharging clinician: Viviane Gotti Anticipated date of discharge: 08/04/17 - Patient Status Disposition: Transfer SNF Condition: Good Functional capacity at discharge: uses cane/walker Overall status at discharge: patient is progressing back to baseline - Discharge Instructions Follow Up With: [facility] [Primary Care Provider] - Additional Instructions: Please follow up with your primary care physician within five days after your discharge from the hospital Please follow up with Neurology within one to two weeks after your discharge from the hospital Aspirin 81mg has been added to your home meds Amlodipine 10mg once a day has been added to your home medications Closely monitor your blood pressure, hold amlodipine for systolic blood pressure less than 120 Resume all other medications as prescribed by your primary care physician - Diet and Activity Activity: as per physical therapy, wear oxygen at all times, wear oxygen at night Diet: diabetic diet, low fat, low cholesterol, low salt diet Hospital course: Mr. 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 He was evaluated by neurology and underwent complete CVA work up. Antiplatelet therapy was recommended by neurology. Pt was also noted to have elevated BP due to which Amlodipine was added. Pt continued to required additional prn hydralazine support despite being on amlodipine 5mg daily, due to which amlodipine 10mg was added. Pt responded well to therapy. He was evaluated by physical therapy and rehab was recommended. Pt will be discharged to [facility] today. Pt hemodynamically stable and reports of feeling better since his arrival to the hospitalization, reports of complete resolution of his presenting symptoms. - Time Spent with Patient Total time spent providing and/or coordinating discharge services: Less than 30 minutes - Constitutional Vitals: Temp Pulse Resp BP Pulse Ox 98.2 F 55 20 127/58 96 08/04/17 06:44 08/04/17 09:17 08/04/17 07:34 08/04/17 09:17 08/04/17 08:00 General appearance: Present: cooperative, A&O X 3 (hard of hearing), no acute distress, obese, answers questions appropriately - Head Head exam: Present: atraumatic, normocephalic - Eye Eye exam: Present: conjuntiva pink, sclera anicteric - Respiratory Respiratory exam: Present: CTAB. Absent: respiratory distress, wheezes - Cardiovascular Cardiovascular exam: Present: RRR, +S1, +S2. Absent: diastolic murmur, gallop, rubs, systolic murmur - GI/Abdominal GI/Abdominal exam: Present: normal bowel sounds, soft, no peritoneal signs. Absent: distended, tenderness - Extremities Exam Extremities exam: Present: warm, radial pulses palpable and symmetrical. Absent : calf tenderness, tenderness - Neurological Exam Neurological exam: Present: alert, oriented X3 - Psychiatric Psychiatric exam: Present: normal affect, normal mood
--- NOTE | 2017-08-04 09:37 | Physician Discharge Referral ---
[facility] Referral Info Transfer To: F Provider in Charge after Transfer: PCP - Diagnosis (1) TIA (transient ischemic attack) Priority: Primary Status: Acute (2) Diabetes mellitus Priority: Secondary Status: Chronic (3) Hypertension Priority: Secondary Status: Chronic (4) DVT prophylaxis Priority: Secondary Status: Acute (5) JAMARCUS (acute kidney injury) Priority: Secondary Status: Resolved (6) Morbid obesity Priority: Secondary Status: Chronic (7) Hyperlipidemia Priority: Secondary Status: Chronic - Transfer Medications Prescriptions: amLODIPine [Norvasc] 10 mg PO DAILY #30 tablet Home Medications: Albuterol Sulfate [Proair Hfa] 2 puff IH Q4H PRN 08/01/17 [History] Budesonide/Formoterol 160/4.5 [Symbicort 160/4.5] 2 puff IH BIDR 08/01/17 [ History] Calcium Carbonate/Vitamin D3 [Calcium 250+D Tablet] 1 tab PO BID 08/01/17 [ History] Cholecalciferol (D-3) [Vitamin D] 1,000 unit PO DAILY 08/01/17 [History] Clopidogrel [Plavix] 75 mg PO DAILY 08/01/17 [History] Docusate Sodium [Dok] 100 mg PO BID 08/01/17 [History] Furosemide [Lasix] 20 mg PO DAILY 08/01/17 [History] Insulin ASPART [NovoLOG] 20 unit SQ BID 08/01/17 [History] Insulin Glargine [Lantus] 68 unit SQ QPM 08/01/17 [History] Isosorbide MONOnitrate (24 HR) [Imdur] 60 mg PO BID 08/01/17 [History] Oxybutynin Chloride [Ditropan Xl] 10 mg PO HS 08/01/17 [History] Simvastatin [Zocor] 80 mg PO QPM 08/01/17 [History] Tiotropium [Spiriva] 1 puff IH DAILY 08/01/17 [History] Aspirin 81 mg PO DAILY tablet 08/04/17 [Rx] Ipratropium/Albuterol Neb [Duoneb] 3 ml IH [id number] PRN inhsol 08/04/17 [Rx] amLODIPine [Norvasc] 10 mg PO DAILY #30 tablet 08/04/17 [Rx] Allergies/Adverse Reactions: 3 Allergy/AdvReac Type Severity Reaction Status Date / Time No Known Allergies Allergy Verified 08/01/17 16:47 - Respiratory Orders Smoking Cessation: Smoking cessation has been advised. For more information, call the [place] Tobacco Quit Line at 7-084-NLUK-NOW. - Treatments List/Other: Please follow up with your primary care physician within five days after your discharge from the hospital Please follow up with Neurology within one to two weeks after your discharge from the hospital Aspirin 81mg has been added to your home meds Amlodipine 10mg once a day has been added to your home medications Closely monitor your blood pressure, hold amlodipine for systolic blood pressure less than 120 Resume all other medications as prescribed by your primary care physician CERTIFICATION: I certify that the transfer of the above named patient to an Extended Care Facility is necessary for the continuing treatment of the diagnosis listed. The above information is true and accurate reflection of patient's current condition. Confidential - Redisclosure prohibited without a patient's written consent.
--- NOTE | 2017-08-04 09:42 | Electrocardiograph Report ---
[place] [id number] Test Date: 2017-08-01 Pat Name: Roberto Joseph Department: 104 Room: 3B11 Gender: M Die Cast Technician: SRAVAN : [id number] Requested By: Ney Batista Order Number: [id number] Reading MD: Brendon Ponce DO Measurements Intervals [place] Rate: 68 P: 58 WI: 164 QRS: -52 QRSD: 85 T: 48 QT: 395 QTc: 411 Interpretive Statements SINUS RHYTHM WITH OCCASIONAL VENTRICULAR PREMATURE COMPLEXES MARKED LEFT AXIS DEVIATION POSSIBLE ANTEROSEPTAL MYOCARDIAL INFARCTION, OF INDETERMINATE AGE Electronically Signed On 08-04-2017 9:40:35 EST by Brendon Ponce DO
== END 2017-08-04 12:12 | DRG 69 ==
LOC: 3BNU 15:35 → EMEROO 15:35 → SUATTDRO 17:33 → 3BNU 17:52
PROVIDERS: ADMIT Internal Medicine Cardiovascular Disease; ATTEND Internal Medicine